=== PATIENT | female | born 1950 | race Caucasian/White ===

== ENCOUNTER 2019-03-24 06:59 | Day surgery (SDC) | payer MEDICARE, BC ==
[~2019-03-24 06:59] MED LIST: Lactated Ringers 1,000 ML IV SCH; Sodium Chloride 0.9% 10 ML Syringe FLUSH PRN
[2019-03-24] MEDS ORDERED: Propofol 200 MG/20 ML SDV IV ONE (07:00)
[2019-03-24] MEDS ORDERED: Lidocaine 2% 5 ML SDV INJECT ONE (07:00)
--- NOTE | 2019-03-24 08:28 | PCM.OPNOTE ---
- General Post-Op/Procedure Note Date of Surgery/Procedure: 03/24/19 Operative Procedure(s): egd. c scope Findings: unremarkable gastric bypass poor prep evidence of radiation to the rectum. Pre Op Diagnosis: anemia. occult blood in stool Post-Op Diagnosis: radiation proctitis. poor prep. sp gastric bypass Anesthesia Technique: MAC Primary Surgeon: Carlos A Saldana Anesthesia Provider: Molly Pugh Complications: None Condition: Good Free Text/Narrative:: see dictation
[2019-03-24 09:43] VITALS: BP 143/68
--- NOTE | 2019-03-24 11:21 | OR ---
DATE OF OPERATION: 03/24/2019 SURGEON: Carlos A Saldana MD PROCEDURE PERFORMED: Esophagogastroduodenoscopy and colonoscopy. PREOPERATIVE DIAGNOSES: History of anemia, occult blood in stools. POSTOPERATIVE DIAGNOSES: 1. Normal appearing gastric bypass. 2. What appears to be radiation proctitis. 3. Poor colon prep. INDICATIONS FOR PROCEDURE: This is a 69-year-old white female who is referred with the above-mentioned complaints. She has a history of extensive GI procedures to her abdominal cavity. She has a history of gastric bypass. 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 She has had a history of enterocutaneous fistula, abdominal wall hernia repair, requiring multiple operations. Recently, she was noted to have some anemia and have occult blood in stools. She was offered and accepted an upper and lower endoscopy. DESCRIPTION OF OPERATION: After an excellent IV sedation was administered, the bite block was inserted. Flexible endoscope was passed without difficulty down the patient's esophagus into the stomach. Gastric pouch was unremarkable. It did appear that rather than have a Maria Alejandra-en-Y gastric bypass, she has what appears to be a loop ileostomy with both an efferent and afferent limb. The scope was advanced approximately 20 cm in both directions down each limb and was noted to be unremarkable. The gastric pouch was unremarkable and the esophagus itself was unremarkable. The pouch was deflated. Our attention was then turned to the patient's colon. Digital rectal exam was noted. She was noted to have extensive fibrosis and scarring down around the perineum with a very firm rectum and sphincter. The colonoscope was inserted and advanced very carefully to approximately the level of the splenic flexure. There was fair amount of liquid stool, which precluded an excellent exam. An efforts to go around the splenic flexure were not successful, and due to her extensive GI surgery history, I elected to terminate the case rather than risk perforation. What was evaluated of the descending colon was unremarkable as well as the sigmoid. 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 No biopsies were taken. The patient tolerated the procedure well. We will be trying to obtain a contrast study to further evaluate the remainder of the patient's colon. /[id number] /MODL
== END 2019-03-24 09:11 | disposition home or self-care (01) ==
LOC: FB.SDS 06:59
PROVIDERS: ATTEND Surgery
DX: R19.5 Other fecal abnormalities (principal); I10 Essential (primary) hypertension; F32.9 Major depressive disorder, single episode, unspecified; E55.9 Vitamin D deficiency, unspecified; M81.0 Age-related osteoporosis without current pathological fracture; Z86.2 Personal history of diseases of the blood and blood-forming organs and certain disorders involving the immune mechanism; Z98.84 Bariatric surgery status; Z79.899 Other long term (current) drug therapy
CPT/HCPCS: J2001; J2704; J7120

== ENCOUNTER 2021-12-22 17:22 | Emergency (ER) | payer MEDICARE ==
[2021-12-22] MEDS ORDERED: Sodium Chloride 0.9% 500 ML IV ONE (18:08)
[2021-12-22] MEDS ORDERED: cefTRIAXone 1 GM Vial IVPUSH STA (18:59)
[2021-12-22 21:12] VITALS: BP 142/66; PULSE 99
== END 2021-12-22 20:45 | disposition home or self-care (01) ==
LOC: FB.ED 17:22
DX: N39.0 Urinary tract infection, site not specified (principal); N17.9 Acute kidney failure, unspecified; D72.829 Elevated white blood cell count, unspecified; E87.1 Hypo-osmolality and hyponatremia; I10 Essential (primary) hypertension; Z90.49 Acquired absence of other specified parts of digestive tract; Z90.710 Acquired absence of both cervix and uterus; Z79.899 Other long term (current) drug therapy; Z88.6 Allergy status to analgesic agent
CPT/HCPCS: 36415; 80048; 81001; 85025; 87086; 87088; 87186; 96374; 99284-25; J0696; J7040

== ENCOUNTER → 2022-05-15 | Day surgery (SDC) | payer MEDICARE ==
[~2022-05-15] MED LIST changes: +Lidocaine 2% 100 MG/5 ML Syringe IVPUSH ONE; +Propofol 200 MG/20 ML SDV IVPUSH ONE
[2022-05-15 10:04] VITALS: BP 125/80; PULSE 83
== END ==
LOC: FB.SDS 07:37
PROVIDERS: ATTEND Surgery
DX: K31.7 Polyp of stomach and duodenum (principal); K29.70 Gastritis, unspecified, without bleeding; K29.80 Duodenitis without bleeding; D64.9 Anemia, unspecified; I13.0 Hypertensive heart and chronic kidney disease with heart failure and stage 1 through stage 4 chronic kidney disease, or unspecified chronic kidney disease; I50.9 Heart failure, unspecified; N18.4 Chronic kidney disease, stage 4 (severe); D63.1 Anemia in chronic kidney disease; M19.90 Unspecified osteoarthritis, unspecified site; F32.A Depression, unspecified; M81.0 Age-related osteoporosis without current pathological fracture; Z90.49 Acquired absence of other specified parts of digestive tract; Z88.6 Allergy status to analgesic agent; Z79.899 Other long term (current) drug therapy; Z98.890 Other specified postprocedural states
CPT/HCPCS: 88305; J2704; J3490; J7120

== ENCOUNTER 2023-01-14 07:53 | Day surgery (SDC) | payer MEDICARE ==
[~2023-01-14 07:53] MED LIST changes: +Lactated Ringers 1,000 ML IV PRN; -Lactated Ringers 1,000 ML IV SCH; -Lidocaine 2% 100 MG/5 ML Syringe IVPUSH ONE; -Propofol 200 MG/20 ML SDV IVPUSH ONE; -Sodium Chloride 0.9% 10 ML Syringe FLUSH PRN
[2023-01-14] MEDS ORDERED: Midazolam 1 MG/ML 2 ML SDV IV ONE (07:54)
[2023-01-14] MEDS ORDERED: Sodium Chloride 0.9% 10 ML Syringe IV ONE (07:54)
[2023-01-14] MEDS ORDERED: fentaNYL 100 MCG/2 ML SDV IV ONE (07:54)
[2023-01-14] MEDS: Sodium Chloride 0.9% 10 ML Syringe FLUSH PRN (08:59)
[2023-01-14] MEDS: acetaZOLAMIDE 500 MG Cap.ER PO ONE (10:04)
[2023-01-14 12:37] VITALS: BP 118/61; PULSE 62
== END 2023-01-14 10:34 | disposition home or self-care (01) ==
LOC: FB.SDS 07:53
PROVIDERS: ATTEND Ophthalmology
DX: H25.013 Cortical age-related cataract, bilateral (principal); M81.0 Age-related osteoporosis without current pathological fracture; F33.1 Major depressive disorder, recurrent, moderate; I12.9 Hypertensive chronic kidney disease with stage 1 through stage 4 chronic kidney disease, or unspecified chronic kidney disease; N18.30 Chronic kidney disease, stage 3 unspecified; M10.9 Gout, unspecified; Z79.899 Other long term (current) drug therapy; Z90.710 Acquired absence of both cervix and uterus; Z98.890 Other specified postprocedural states; Z90.49 Acquired absence of other specified parts of digestive tract; Z98.84 Bariatric surgery status; Z88.5 Allergy status to narcotic agent
CPT/HCPCS: 00142; 66984; A9270; J2250; J3010; J3490; V2632

== ENCOUNTER 2023-02-11 06:42 | Day surgery (SDC) | payer MEDICARE ==
[2023-02-11] MEDS ORDERED: Midazolam 1 MG/ML 2 ML SDV IV ONE (06:43)
[2023-02-11] MEDS ORDERED: Lactated Ringers 1,000 ML IV PRN (06:45)
[2023-02-11] MEDS ORDERED: Sodium Chloride 0.9% 10 ML Syringe FLUSH PRN (06:45)
[2023-02-11 08:54] VITALS: BP 137/49; PULSE 56
[2023-02-11] MEDS ORDERED: acetaZOLAMIDE 500 MG Cap.ER PO ONE (09:00)
== END 2023-02-11 09:14 | disposition home or self-care (01) ==
LOC: FB.SDS 06:42
PROVIDERS: ATTEND Ophthalmology
DX: H25.013 Cortical age-related cataract, bilateral (principal); M81.0 Age-related osteoporosis without current pathological fracture; F33.1 Major depressive disorder, recurrent, moderate; N18.30 Chronic kidney disease, stage 3 unspecified; I12.9 Hypertensive chronic kidney disease with stage 1 through stage 4 chronic kidney disease, or unspecified chronic kidney disease; Z79.899 Other long term (current) drug therapy; Z90.49 Acquired absence of other specified parts of digestive tract; Z98.84 Bariatric surgery status; Z88.5 Allergy status to narcotic agent
CPT/HCPCS: 00142; 66984; A9270; J2250; J3490; J7120; V2632

== ENCOUNTER 2024-06-03 06:17 | Day surgery (SDC) | payer MEDICARE ==
[~2024-06-03 06:17] MED LIST changes: -Lactated Ringers 1,000 ML IV PRN; +Sodium Chloride 0.9% 10 ML Syringe FLUSH PRN
[2024-06-03] MEDS ORDERED: Lidocaine 1% 5 ML VIAL INJECT ONE (06:18)
[2024-06-03] MEDS ORDERED: Propofol 200 MG/20 ML SDV IV ONE (06:18)
[2024-06-03] MEDS: Lactated Ringers 1,000 ML IV SCH (07:30)
[2024-06-03] MEDS: ceFAZolin 1 GM Vial IVPUSH ONE (07:45)
[2024-06-03] MEDS: Lidocaine 1% with EPINEPHrine 1:100,000 20 ML MDV INJECT ONE (08:07)
[2024-06-03] MEDS: Bupivacaine 0.5% 30 ML SDV INJECT ONE (08:07)
[2024-06-03 10:25] VITALS: BP 156/59; PULSE 59
== END 2024-06-03 09:37 | disposition home or self-care (01) ==
LOC: FB.SDS 06:17
PROVIDERS: ATTEND Surgery
DX: L72.0 Epidermal cyst (principal); L02.214 Cutaneous abscess of groin; I12.9 Hypertensive chronic kidney disease with stage 1 through stage 4 chronic kidney disease, or unspecified chronic kidney disease; N18.30 Chronic kidney disease, stage 3 unspecified; Z88.5 Allergy status to narcotic agent; Z79.899 Other long term (current) drug therapy
CPT/HCPCS: 00400; 87070; 87075; 87077; 87186; 87205; 88304; 99100; J0665; J0690; J2704; J7120